=== PATIENT | female | born 1950 ===

== ENCOUNTER 2016-05-06 09:18 | Emergency (ER) | payer MEDICARE ==
[2016-05-06 10:00] VITALS: BP 144/87; PULSE 59; RESP 19; TEMP 97.9; O2SAT 100
[2016-05-06] MEDS ORDERED: TDAP Vaccine 0.5 mL Syr IM ONE (10:33)
--- NOTE | 2016-05-06 11:29 | ED PDOC ---
HPI: Head Injury Time Seen by Provider: 05/06/16 10:19 Chief Complaint (Nursing): Abnormal Skin Integrity Chief Complaint (Provider): Abnormal Skin Integrity History Per: Patient History/Exam Limitations: no limitations Injury Occurred (Timing): Just Before Arrival Patient States: Fell Striking Head Severity: Moderate Loss Of Consciousness: No Additional Complaint(s): Patient is a 66 year old female brought to ED by EMS for head injury sustained this morning. Patient reports she had groceries in her hands while walking up the steps and fell forward striking her right forehead and right knee. Patient does take the blood thinner Persantine daily due to a TIA history. Denies dizziness, weakness, AMS, LOC, chest pain or nausea. Past Medical History Reviewed: Historical Data, Nursing Documentation, Vital Signs Vital Signs: Last Vital Signs Temp 97.9 F 05/06/16 09:59 Pulse 59 L 05/06/16 09:59 Resp 19 05/06/16 09:59 BP 144/87 05/06/16 09:59 Pulse Ox 100 05/06/16 09:59 - Medical History PMH: HTN, TIA - Surgical History Surgical History: Appendectomy - Family History Family History: States: No Known Family Hx - Living Arrangements Living Arrangements: With Family - Allergies Allergies/Adverse Reactions: Allergies Allergy/AdvReac Type Severity Reaction Status Date / Time Penicillins Allergy RASH Verified 05/06/16 09:43 Review of Systems ROS Statement: Except As Marked, All Systems Reviewed And Found Negative Constitutional: Negative for: Weakness Eyes: Negative for: Vision Change Cardiovascular: Negative for: Chest Pain, Palpitations Respiratory: Negative for: Shortness of Breath Gastrointestinal: Negative for: Nausea, Vomiting Musculoskeletal: Positive for: Leg Pain Skin: Positive for: Other (right forehead laceration ) Neurological: Negative for: Weakness, Numbness, Confusion, Altered Mental Status , Dizziness Physical Exam - Reviewed Nursing Documentation Reviewed: Yes Vital Signs Reviewed: Yes - Physical Exam Appears: Positive for: No Acute Distress Head Exam: Negative for: ATRAUMATIC (3cm slightly jagged laceration with abrasion at medical edge. 2cm x 2cm abrasion to left nasal bridge ) Skin: Positive for: Normal Color, Warm Eye Exam: Positive for: Normal appearance, EOMI, PERRL Neck: Positive for: Normal, Painless ROM, Supple Cardiovascular/Chest: Positive for: Regular Rate, Rhythm. Negative for: Murmur Respiratory: Positive for: Normal Breath Sounds. Negative for: Respiratory Distress Gastrointestinal/Abdominal: Positive for: Normal Exam. Negative for: Tenderness Back: Positive for: Normal Inspection Extremity: Positive for: Normal ROM. Negative for: Pedal Edema Neurologic/Psych: Positive for: Alert, child specialist II-XII (grossly intact ), Oriented, Cerebellar Tests (intact ), Gait (normal ), Other (strength 5/5 upper and lower extremities ). Negative for: Motor/Sensory Deficits, Aphasia, Facial Droop - ECG O2 Sat by Pulse Oximetry: 100 (RA) Pulse Ox Interpretation: Normal Medical Decision Making Medical Decision Making: Time: 1033 Initial impression: Head injury Initial plan: -- CT-head/ Orbits -- Knee Xray -- TDAP and Tylenol Scribe Attestation: Documented by Ayanna Del Rio acting as a scribe for Julius Traylor PA-C. MD Scribe Attestation: All medical record entries made by the Scribe were at my direction and personally dictated by me. I have reviewed the chart and agree that the record accurately reflects my personal performance of the history, physical exam, medical decision making, and the department course for this patient. I have also personally directed, reviewed, and agree with the discharge instructions and disposition. sterile dressing placed on nose abrasion and laceration after repair. Orbits: IMPRESSION: No evidence of acute orbital or maxillofacial fracture. Small right frontal scalp hematoma. Chronic ethmoid and maxillary sinusitis. Nasal septum deviated to the right. Hea: IMPRESSION: No intracranial mass, hemorrhage or evidence of acute infarct. Chronic microvascular white matter ischemic change with O more focal remote ischemic change adjacent to frontal horn left lateral ventricle. Chronic ethmoid sinusitis. CTs as above. neuro exam continues to show no focal weakness or deficits, headache has resolved. no change in vision. she feels well. all questions answered, stable for discharge. return and follow up information discussed. Disposition - Clinical Impression Clinical Impression: Head injury, Nose injury, Forehead laceration, Facial abrasion - Patient ED Disposition Is Patient to be Admitted: No Counseled Patient/Family Regarding: Studies Performed, Diagnosis, Need For Followup - Disposition Referrals: Medhat Tan MD [Primary Care Provider] - Disposition: Routine/Home Disposition Time: 13:34 Condition: IMPROVED Additional Instructions: keep the sutures clean and dry return for bleeding, opening of the wound, severe headache or any new concerns follow up without fail with your doctor in 1-2 days for re-evaluation Instructions: Head Injury (ED), Abrasion (ED), Facial Laceration (ED), Care For Your Absorbable Stitches (ED) Laceration - Laceration Repair Right forehead Wound Length (In cm): 3 Description Of Wound: Irregular Wound Cleansed With: Sterile Saline Anesthesia: Lidocaine 1% (3ml) Wound Examination: Irrigated With Saline, No FB With Wound Exploration Wound Closure: Suture Suture Technique And Material Used: Running, Chromic (6-0) Wound Complexity: Simple
[2016-05-06] MEDS ORDERED: Lidocaine 1% Inj (20ml) ONE (12:26)
[2016-05-06] MEDS ORDERED: Lidocaine 1% Inj (20ml) IJ ONE (12:34)
--- NOTE | 2016-05-06 13:12 | CT ---
PROCEDURE: CT ORBITS WITHOUT CONTRAST. HISTORY: Pain, fall COMPARISON: None available. TECHNIQUE: Axial CT images of the orbits were obtained. Coronal and sagittal reformats were generated. Radiation dose: Total exam DLP = 694.22 mGy-cm. FINDINGS: RIGHT ORBIT: RIGHT BONY ORBIT: No evidence of orbital fracture. RIGHT INTRAORBITAL STRUCTURES: Globe: Normal. Extraocular muscles: Normal. Post septal space: Normal. Optic Nerve: Normal. Lacrimal Apparatus: Normal. RIGHT PRESEPTAL SOFT TISSUES: Normal. LEFT ORBIT: LEFT BONY ORBIT: No evidence of orbital fracture. LEFT INTRAORBITAL STRUCTURES: Globe: Normal. Extraocular muscles: Normal. Post septal space: Normal Optic Nerve: Normal. . Lacrimal Apparatus: Normal. LEFT PRESEPTAL SOFT TISSUES: Normal. OTHER: There is a small right frontal scalp hematoma. There is moderate mucosal thickening in the anterior ethmoid air cells and mild mucoperiosteal thickening in the maxillary sinuses. The nasal septum is deviated to the right and there is a large left middle turbinate geo bullosa. IMPRESSION: No evidence of acute orbital or maxillofacial fracture. Small right frontal scalp hematoma. Chronic ethmoid and maxillary sinusitis. Nasal septum deviated to the right.
--- NOTE | 2016-05-06 13:24 | CT ---
PROCEDURE: CT HEAD WITHOUT CONTRAST. HISTORY: pain, fall COMPARISON: None available. TECHNIQUE: Axial computed tomography images were obtained through the head/brain without intravenous contrast. Radiation dose: Total exam DLP = 782.55 mGy-cm. FINDINGS: HEMORRHAGE: No intracranial hemorrhage. BRAIN: No mass effect or edema. No atrophy. Mild periventricular white matter lucency consistent with a microvascular white matter ischemic change. Focal white matter ischemic change adjacent to frontal horn left lateral ventricle. No evidence of acute infarct. VENTRICLES: Unremarkable. No hydrocephalus. CALVARIUM: Unremarkable. PARANASAL SINUSES: Chronic ethmoid sinusitis. MASTOID AIR CELLS: Unremarkable as visualized. No inflammatory changes. OTHER FINDINGS: None. IMPRESSION: No intracranial mass, hemorrhage or evidence of acute infarct. Chronic microvascular white matter ischemic change with O more focal remote ischemic change adjacent to frontal horn left lateral ventricle. Chronic ethmoid sinusitis.
--- NOTE | 2016-05-06 13:30 | RAD ---
PROCEDURE: Right Knee Radiographs. HISTORY: Pain, fall COMPARISON: None. FINDINGS: BONES: There is mild periarticular bone demineralization. There is no acute displaced fracture or bone destruction. Bone alignment is normal. JOINTS: There is mild tricompartmental degenerative osteoarthrosis with reduced joint spaces and marginal osteophytes, worse in the medial compartment. JOINT EFFUSION: There is a small suprapatellar joint effusion. OTHER FINDINGS: None. IMPRESSION: No acute fracture or dislocation. Mild tricompartmental degenerative osteoarthrosis, worse in the medial compartment.
== END 2016-05-06 13:33 | disposition home or self-care (01) ==
LOC: H.ER 09:18
DX: S01.81XA Laceration without foreign body of other part of head, initial encounter (principal); S09.92XA Unspecified injury of nose, initial encounter; S00.81XA Abrasion of other part of head, initial encounter; W19.XXXA Unspecified fall, initial encounter; Y92.89 Other specified places as the place of occurrence of the external cause; I10 Essential (primary) hypertension; Z86.73 Personal history of transient ischemic attack (TIA), and cerebral infarction without residual deficits

== ENCOUNTER 2016-07-30 10:31 | Inpatient (IN) | payer MEDICARE ==
[2016-07-30 10:39] VITALS: BMI 26.6
--- NOTE | 2016-07-30 10:46 | ED PDOC ---
HPI:STROKE - Time Time: 10:31 (arrived ) - Historian Historian: Family (son), EMS - Chief Complaint Chief Complaint: Weakness (left sided ), Slurred speech, Facial droop (right sided) - Onset Onset: This morning (noticed this morning) - Notes: Notes:: Eloisa Ac is a 66 year old female, with a previous medical history of TIA, diabetes and hypertension, who presents to the ED via EMS after she was found by her grandson this morning on the bed with left sided weakness associated with right facial droop and slurred speech. According to the patient's son, the patient was noted to be twitching but twitching resolved spontaneously. Son reports patient was last seen well 22:00 last night before bed. Son reports patient is on blood thinners. PMD: Medhat Tan MD NIHSS Stroke Scale - Date/Time Evaluation Performed Date Performed: 07/30/16 Time Performed: 10:30 When Was NIHSS Performed: Code Stroke - How Severe is the Stroke Level of Consciousness: 1=Drowsy LOC to Questions: 0=Both comments correct LOC to commands: 0=Obeys both correctly Best Gaze: 0=Normal Visual: 0=No visual loss Facial: 1=Minor asymmetry Motor Arm - Left: 0=No drift Motor Arm - Right: 0=No drift Motor Leg - Left: 0=No drift Motor Leg - Right: 0=No drift Limb Ataxia: 0=Absent Sensory: 0=Normal Best Language: 0=No aphasia Dysarthia: 0=Normal articulation Extinction & Inattention (Neglect): 0=Normal, no object Score: 2 Severity Of Stroke: 1-4 = Minor Stroke rTPA Inclusion/Exclusion - Refusal of Treatment Patient Refused Treatment: No - Inclusion Criteria for Altepase Patient is 18 years or Older: Yes The Clinical Diagnosis of Ischemic Stroke That is Causing a Potentially Disabling Neurological Deficit: Yes Time of Onset is Well Established to be Less Than 270 Minute Before Treatment Would Begin: No Risk/Benefit Discussed With Patient/Family Member Present: No Past Medical History Reviewed: Historical Data, Nursing Documentation, Vital Signs Vital Signs: Last Vital Signs Temp Pulse Resp BP 110/59 L 07/30/16 10:37 Pulse Ox - Medical History PMH: Diabetes, HTN, TIA - Surgical History Surgical History: Appendectomy - Family History Family History: States: Unknown Family Hx - Allergies Allergies/Adverse Reactions: Allergies Allergy/AdvReac Type Severity Reaction Status Date / Time Penicillins Allergy Mild RASH Verified 07/30/16 10:37 Review of Systems ROS Statement: Except As Marked, All Systems Reviewed And Found Negative Neurological: Positive for: Weakness (left sided ), Change in Speech (slurred), Other (right sided facial droop ) Physical Exam - Reviewed Nursing Documentation Reviewed: Yes Vital Signs Reviewed: Yes - Physical Exam Neurologic/Psych: Positive for: Facial Droop - Laboratory Results Result Diagrams: 07/30/16 10:57 07/30/16 10:57 - ECG Interpretation Of ECG: Sinus abdirizak @ 47, no ST-T changes. - Radiology X-Ray: Interpreted by [facility] X-Ray Interpretation: No Acute Disease - Critical Care Total Time (In Min): 30 Medical Decision Making Medical Decision Making: Initial Impression: Stroke Initial Plan: * Blood type and screen * CT head w/o contrast * EKG * labs * Hemoglobin A1C * lipid panel * Troponin I * PTT * PT * CXR * zofran 4mg IV * quality assurance monitor final cont * accu-check * vital signs Q15 * reevaluation Corey (son) [phone] 11:01 CT head FINDINGS: HEMORRHAGE: No intracranial hemorrhage. BRAIN: No mass effect or edema. Mild white matter changes are again noted adjacent to the left lateral ventricle frontal horn likely represent chronic microvascular ischemic disease. VENTRICLES: Unremarkable. No hydrocephalus. CALVARIUM: Unremarkable. PARANASAL SINUSES: Unremarkable as visualized. No significant inflammatory changes. MASTOID AIR CELLS: Unremarkable as visualized. No inflammatory changes. OTHER FINDINGS: None. IMPRESSION: No evidence of acute intracranial hemorrhage territorial infarct mass effect or midline shift. Re- demonstration of mild chronic microvascular white matter ischemic disease. Scribe Attestation: Documented by Oly Andrews, acting as a scribe for Oly Beasley MD. Provider Scribe Attestation: All medical record entries made by the Scribe were at my direction and personally dictated by me. I have reviewed the chart and agree that the record accurately reflects my personal performance of the history, physical exam, medical decision making, and the department course for this patient. I have also personally directed, reviewed, and agree with the discharge instructions and disposition.
--- NOTE | 2016-07-30 11:02 | CT ---
PROCEDURE: CT HEAD WITHOUT CONTRAST. HISTORY: R facial droop COMPARISON: Comparison is made to the previous study dated 05/06/2016 TECHNIQUE: Axial computed tomography images were obtained through the head/brain without intravenous contrast. Radiation dose: Total exam DLP = 793.03 mGy-cm. This CT exam was performed using one or more of the following dose reduction techniques: Automated exposure control, adjustment of the mA and/or kV according to patient size, and/or use of iterative reconstruction technique. FINDINGS: HEMORRHAGE: No intracranial hemorrhage. BRAIN: No mass effect or edema. Mild white matter changes are again noted adjacent to the left lateral ventricle frontal horn likely represent chronic microvascular ischemic disease. VENTRICLES: Unremarkable. No hydrocephalus. CALVARIUM: Unremarkable. PARANASAL SINUSES: Unremarkable as visualized. No significant inflammatory changes. MASTOID AIR CELLS: Unremarkable as visualized. No inflammatory changes. OTHER FINDINGS: None. IMPRESSION: No evidence of acute intracranial hemorrhage territorial infarct mass effect or midline shift. Re- demonstration of mild chronic microvascular white matter ischemic disease.
[2016-07-30 11:06] LABS: BASO # 0.1 K/uL (0.0-0.2); BASO % 0.5 % (0.0-2.0); EOS # 0.1 K/uL (0.0-0.7); EOS % 0.9 % (0.0-4.0); HEMATOCRIT 40.3 % (34.0-47.0); LYMPH # 3.9 K/uL (1.0-4.3); LYMPH % 35.5 % (20.0-40.0); MEAN CELL VOLUME 88.2 fl (81.0-99.0); MEAN CORPUSCULAR HEMOGLOBIN 28.8 pg (27.0-31.0); MEAN CORPUSCULAR HGB CONC 32.6 g/dL (33.0-37.0); MEAN PLATELET VOLUME 8.4 fl (7.2-11.7); MONO # 0.9 K/uL (0.0-0.8); MONO % 8.6 % (0.0-10.0); NEUT # 5.9 K/uL (1.8-7.0); NEUT % 54.5 % (50.0-75.0); NRBC % 0.1 % (0.0-0.0); RED CELL DISTRIBUTION WIDTH 13.7 % (11.5-14.5); WHITE BLOOD COUNT 10.9 K/uL (4.8-10.8)
[2016-07-30 11:20] LABS: ALB/GLOB RATIO 1.4 (1.0-2.1); ALKALINE PHOSPHATASE 78 U/L (38-126); ALT/SGPT 34 U/L (9-52); AST/SGOT 22 U/L (14-36); BILIRUBIN,TOTAL 0.6 mg/dl (0.2-1.3); BLOOD UREA NITROGEN 18 mg/dl (7-17); CALCIUM 9.2 mg/dL (8.4-10.2); CARBON DIOXIDE 23 mmol/L (22-30); CHLORIDE 106 mmol/L (98-107); CHOLESTEROL 193 mg/dL (0-199); GFR AFRICAN-AMERICAN > 60; GLUCOSE,RANDOM 85 mg/dL (65-105); POTASSIUM 4.5 MMOL/L (3.6-5.0); SODIUM 139 mmol/l (132-148); TOTAL PROTEIN 7.3 G/DL (6.3-8.2)
[2016-07-30] MEDS ORDERED: Sodium Chloride 0.9% 1,000 ML IV STA (11:47)
[2016-07-30 11:54] LABS: RBC URINE 1 /hpf (0-3); URINE BILIRUBIN NEGATIVE (NEGATIVE); URINE BLOOD NEGATIVE (NEGATIVE); URINE COLOR YELLOW (YELLOW); URINE GLUCOSE (UA) NEG (Normal); URINE KETONE NEGATIVE (NEGATIVE); URINE LEUKOCYTE ESTERASE NEG Leu/uL (Negative); URINE PROTEIN NEGATIVE (NEGATIVE); URINE UROBILINOGEN 0.2-1.0 mg/dL (0.2-1.0)
--- NOTE | 2016-07-30 12:02 | CARD ---
APPROVED REPORT EKG Measurement Heart [id number] MA [id number] <Conclusion> Sinus bradycardia Otherwise normal ECG
--- NOTE | 2016-07-30 13:35 | RAD ---
HISTORY: CVA. Portable study 10:54. COMPARISON: No prior. FINDINGS: LUNGS: No active pulmonary disease. PLEURA: No significant pleural effusion identified, no pneumothorax apparent. CARDIOVASCULAR: No radiographic findings to suggest acute or significant cardiovascular disease. OSSEOUS STRUCTURES: No significant abnormalities. VISUALIZED UPPER ABDOMEN: Normal. OTHER FINDINGS: None. IMPRESSION: No active disease.
--- NOTE | 2016-07-30 15:03 | CP.PCM.HP ---
<Elder Gonsales - Last Filed: 07/30/16 18:00> History of Present Illness - History of Present Illness History of Present Illness: 66 YO F was brought into the ER after her son noticed her having right sided facial droop, left sided weakness and slurred speech when she woke up in the morning. She was last seen by her son 10pm the night before and did not have these physical manifestations. Pt had one episode of non bloody non bilious vomiting in the CT scan room. - Patient admits to trying to end her life within the last couple of days, because of the overwelming stress of losing her house to foreclosure. She lives with her mother and son. 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 - Two days ago the patient took a bottle of Glimperide because she had seen on tv it would end her life. The following day she took a handful of Xanax (which was her mothers medication) and put a plastic bag over her head to end her life , but states it was too uncomfortable and ended up taking the bag off her head. Currently she does not express suicidal ideation. Denies any injury to her head. She denies any loss of interest in activities she used to enjoy or loss of energy. She does admit to guilt, with losing the house, she feels as it is her fault. She has not seen a psychiatrist in over 20 years, and is not sure if she was was ever treated for depression. - Denies chest pain, SOB, N/V/D. Currently states she does not feel weak anymore. PMH: TIA, DM2, HTN PSH: Appendectomy Allergy: Penicillin Med: Lisinopril: 20mg. Metformin 1000mb BID, Simvastatin 40mg, Dipyramidol 25 mg TID F/H: Father had stomach cancer. Mother has dementia S/H: Lives w/ her mother and her son, she is overwelmed taking care of her mother with dementia. Denies any travel history. Denies any guns at home. ER course: EKG: Sinus Bradycardia Head CT: Scan does not show any hemorrhage IV fluids 1:1 Suicide watch Type and screen Coagulation panal Zofran 4mg IV PMD: Manual Dominick Shimon. Last visit was over 6 months ago. * Pt: States if she is unable to make decisions for her health or something happens to her: She would like her son to be the decision maker. [phone] (Corey) - She would not want to be intubated, but has verbally consented to chest compressions if needed. Present on Admission - Present on Admission Any Indicators Present on Admission: No History of DVT/PE: No Review of Systems - Review of Systems All systems: reviewed and no additional remarkable complaints except Past Patient History - Past Social History Smoking Status: Never Smoked - CARDIAC Hx Hypertension: Yes - NEUROLOGICAL Hx Transient Ischemic Attacks (TIA): Yes - ENDOCRINE/METABOLIC Hx Diabetes Mellitus Type 2: Yes - PSYCHIATRIC Hx Substance Use: No - SURGICAL HISTORY Hx Appendectomy: Yes - ANESTHESIA Hx Anesthesia: Yes Hx Anesthesia Reactions: No Meds Allergies/Adverse Reactions: Allergies Allergy/AdvReac Type Severity Reaction Status Date / Time Penicillins Allergy Mild RASH Verified 07/30/16 10:37 Physical Exam - Constitutional Appears: No Acute Distress - Head Exam Head Exam: NORMAL INSPECTION - ENT Exam ENT Exam: Mucous Membranes Dry - Respiratory Exam Respiratory Exam: Clear to Auscultation Bilateral, NORMAL BREATHING PATTERN - Cardiovascular Exam Cardiovascular Exam: REGULAR RHYTHM, +S1, +S2 - GI/Abdominal Exam GI & Abdominal Exam: Normal Bowel Sounds, Soft. absent: Tenderness - Neurological Exam Neurological exam: Alert, CN II-XII Intact, Oriented x3 Additional comments: Motor and sensation intact Motor: 5/5 b/l upper and lower extremity DTR WNL 2+ b/l - Psychiatric Exam Psychiatric exam: Depressed - Skin Skin Exam: Normal Color, Warm Results - Vital Signs Recent Vital Signs: Last Vital Signs Temp 95.7 F L 07/30/16 11:15 Pulse 47 L 07/30/16 12:03 Resp 16 07/30/16 12:03 BP 133/68 07/30/16 12:03 Pulse Ox 100 07/30/16 12:03 - Labs Result Diagrams: 07/30/16 10:57 07/30/16 10:57 Assessment & Plan - Assessment and Plan (Free Text) Assessment: 66 YO F which was admitted with right sided facial droop, left sided weakness and slurring of speech 1) Suicidal Ideation w/ attempt w/ Xanex overdose - Monitor on Tele - 1:1 supervision - Consulted Dr. Nixon - If medically stable, patient will be transferred to voluntary inpatient psych tomorrow. - F/U w/ CBC,CMP, TSH, T4 2) DM2 -Metformin 1000mg BID - Lipitor 20 mg PO daily - F/U w/ HBA1c 3) HTN - Lisinopril 20 mg PO 4) Hx of TIA - Dipyridamol 23 mg TID - Lipitor 20 mg PO daily 5) Prophylaxis - Protonix - Heparin 5,000 units SQ Q12 abd B/L SCD - Heart healthy diet <Taras Aleman - Last Filed: 07/30/16 19:33> Results - Vital Signs Recent Vital Signs: Last Vital Signs Temp 97.5 F L 07/30/16 16:05 Pulse 47 L 07/30/16 16:05 Resp 18 07/30/16 16:25 BP 110/67 07/30/16 16:05 Pulse Ox 99 07/30/16 16:05 - Labs Result Diagrams: 07/30/16 10:57 07/30/16 10:57 Labs: Laboratory Results - last 24 hr 07/30/16 16:46 POC Glucose (mg/dL) 78 Attending/Attestation - Attestation I have personally seen and examined this patient.: Yes I have fully participated in the care of the patient.: Yes I have reviewed all pertinent clinical information: Yes Notes (Text): 07/30/16 19:31 Patient was seen separately from Family Medicin Resident History, Physical, Assessment and Plan and Orders were thoroughly gone over with the resident Please also note on exam that there was NO facial droop, 5/5 strength bilateral UE and LE with flexion and extension. For In-Patient psychiatry 07/31/16 (patient is willing to do so) as long as there are NO issues overnight (NO QT prolongation on Telemetry). Taras Aleman D.O.
[2016-07-30] MEDS ORDERED: Pneumococcal 23-Valent Vaccine IM ONE (16:50)
[2016-07-30] MEDS: Insulin Regular 100 units/ml SC SCH ×2 (17:00→22:42)
[2016-07-30] MEDS: Pantoprazole 40 mg EC Tab PO SCH (17:00)
[2016-07-30] MEDS: Sodium Chloride 0.9% 1,000 ML IV SCH (18:28)
[2016-07-30] MEDS ORDERED: Magnesium Oxide 400 mg Tab UD PO ONE (19:00)
[2016-07-30] MEDS ORDERED: Alum-Mag Hydrox-Simethicone Susp (30 mL) PO STA (19:50)
[2016-07-30 20:14] VITALS: O2SAT 97
[2016-07-31 04:36] VITALS: RESP 18
[2016-07-31 04:51] LABS: BASO % 0.2 % (0.0-2.0); EOS # 0.1 K/uL (0.0-0.7); EOS % 1.3 % (0.0-4.0); HEMATOCRIT 37.3 % (34.0-47.0); LYMPH # 4.8 K/uL (1.0-4.3); LYMPH % 42.9 % (20.0-40.0); MEAN CELL VOLUME 87.5 fl (81.0-99.0); MEAN CORPUSCULAR HEMOGLOBIN 28.5 pg (27.0-31.0); MEAN CORPUSCULAR HGB CONC 32.6 g/dL (33.0-37.0); MONO % 8.7 % (0.0-10.0); NEUT # 5.3 K/uL (1.8-7.0); NEUT % 46.9 % (50.0-75.0); RED CELL DISTRIBUTION WIDTH 13.5 % (11.5-14.5); WHITE BLOOD COUNT 11.2 K/uL (4.8-10.8)
[2016-07-31 04:58] LABS: ALB/GLOB RATIO 1.3 (1.0-2.1); ALKALINE PHOSPHATASE 69 U/L (38-126); ALT/SGPT 30 U/L (9-52); AST/SGOT 21 U/L (14-36); BILIRUBIN,TOTAL 0.2 mg/dl (0.2-1.3); BLOOD UREA NITROGEN 18 mg/dl (7-17); CALCIUM 8.5 mg/dL (8.4-10.2); CARBON DIOXIDE 24 mmol/L (22-30); CHLORIDE 107 mmol/L (98-107); GFR AFRICAN-AMERICAN > 60; GLUCOSE,RANDOM 92 mg/dL (65-105); POTASSIUM 4.1 MMOL/L (3.6-5.0); SODIUM 142 mmol/l (132-148); TOTAL PROTEIN 6.6 G/DL (6.3-8.2)
[2016-07-31 05:01] LABS: T4 7.21 ug/dl (5.5-11.0)
[2016-07-31 05:14] LABS: THYROID STIMULATING HORMONE 1.02 mIU/ML (0.46-4.68)
[2016-07-31] MEDS: Sodium Chloride 0.9% 1,000 ML IV SCH (05:31)
[2016-07-31] MEDS: Insulin Regular 100 units/ml SC SCH ×2 (06:50→15:03)
[2016-07-31] MEDS: Pantoprazole 40 mg EC Tab PO SCH (10:34)
--- NOTE | 2016-07-31 10:42 | CP.PCM.DIS ---
Provider - Provider Date of Admission: 07/30/16 12:37 Attending physician: Taras Aleman MD Time Spent in preparation of Discharge (in minutes): 30 Diagnosis - Discharge Diagnosis (1) Suicide attempt by drug ingestion Status: Acute Hospital Course - Lab Results Lab Results: Most Recent Lab Values WBC 11.2 K/uL (4.8-10.8) H 07/31/16 04:05 RBC 4.26 Mil/uL (3.80-5.20) 07/31/16 04:05 Hgb 12.2 g/dL (12.0-16.0) 07/31/16 04:05 Hct 37.3 % (34.0-47.0) 07/31/16 04:05 MCV 87.5 fl (81.0-99.0) 07/31/16 04:05 MCH 28.5 pg (27.0-31.0) 07/31/16 04:05 MCHC 32.6 g/dL (33.0-37.0) L 07/31/16 04:05 RDW 13.5 % (11.5-14.5) 07/31/16 04:05 Plt Count 290 K/uL (130-400) 07/31/16 04:05 MPV 9.0 fl (7.2-11.7) 07/31/16 04:05 Neut % (Auto) 46.9 % (50.0-75.0) L 07/31/16 04:05 Lymph % (Auto) 42.9 % (20.0-40.0) H 07/31/16 04:05 [place] % (Auto) 8.7 % (0.0-10.0) 07/31/16 04:05 Eos % (Auto) 1.3 % (0.0-4.0) 07/31/16 04:05 Baso % (Auto) 0.2 % (0.0-2.0) 07/31/16 04:05 Neut # 5.3 K/uL (1.8-7.0) 07/31/16 04:05 Lymph # 4.8 K/uL (1.0-4.3) H 07/31/16 04:05 [place] # 1.0 K/uL (0.0-0.8) H 07/31/16 04:05 Eos # 0.1 K/uL (0.0-0.7) 07/31/16 04:05 Baso # 0.0 K/uL (0.0-0.2) 07/31/16 04:05 PT 11.0 Seconds (9.8-13.1) 07/30/16 10:57 INR 1.0 (0.9-1.2) 07/30/16 10:57 APTT 33.0 Seconds (25.6-37.1) 07/30/16 10:57 Sodium 142 mmol/l (132-148) 07/31/16 04:05 Potassium 4.1 MMOL/L (3.6-5.0) 07/31/16 04:05 Chloride 107 mmol/L (98-107) 07/31/16 04:05 Carbon Dioxide 24 mmol/L (22-30) 07/31/16 04:05 Anion Gap 15 (10-20) 07/31/16 04:05 BUN 18 mg/dl (7-17) H 07/31/16 04:05 Creatinine 0.7 mg/dL (0.7-1.2) 07/31/16 04:05 Est GFR ( Amer) > 60 07/31/16 04:05 Est GFR (Non-Af Amer) > 60 07/31/16 04:05 POC Glucose (mg/dL) 108 mg/dL (65-110) 07/31/16 06:48 Random Glucose 92 mg/dL (65-105) 07/31/16 04:05 Hemoglobin A1c 5.8 % (4.2-6.5) 07/30/16 10:57 Lactic Acid 1.1 MMOL/L (0.7-2.1) 07/30/16 11:40 Calcium 8.5 mg/dL (8.4-10.2) 07/31/16 04:05 Total Bilirubin 0.2 mg/dl (0.2-1.3) 07/31/16 04:05 AST 21 U/L (14-36) 07/31/16 04:05 ALT 30 U/L (9-52) 07/31/16 04:05 Alkaline Phosphatase 69 U/L (38-126) 07/31/16 04:05 Troponin I 0.0190 ng/mL (0.00-0.120) 07/30/16 10:57 Total Protein 6.6 G/DL (6.3-8.2) 07/31/16 04:05 Albumin 3.7 g/dL (3.5-5.0) 07/31/16 04:05 Globulin 2.8 gm/dL (2.2-3.9) 07/31/16 04:05 Albumin/Globulin Ratio 1.3 (1.0-2.1) 07/31/16 04:05 Triglycerides 153 mg/DL (0-149) H 07/30/16 10:57 Cholesterol 193 mg/dL (0-199) 07/30/16 10:57 LDL Cholesterol Direct 104 mg/dL (0-129) 07/30/16 10:57 HDL Cholesterol 51 MG/DL (30-70) 07/30/16 10:57 Thyroxine (T4) 7.21 ug/dl (5.5-11.0) 07/31/16 04:05 TSH 3rd Generation 1.02 mIU/ML (0.46-4.68) 07/31/16 04:05 Urine Color Yellow (YELLOW) 07/30/16 11:35 Urine Clarity Clear (Clear) 07/30/16 11:35 Urine pH 7.0 (5.0-8.0) 07/30/16 11:35 Ur Specific [place] 1.009 (1.003-1.030) 07/30/16 11:35 Urine Protein Negative mg/dL (NEGATIVE) 07/30/16 11:35 Urine Glucose (UA) Neg mg/dL (Normal) 07/30/16 11:35 Urine Ketones Negative mg/dL (NEGATIVE) 07/30/16 11:35 Urine Blood Negative (NEGATIVE) 07/30/16 11:35 Urine Nitrate Negative (NEGATIVE) 07/30/16 11:35 Urine Bilirubin Negative (NEGATIVE) 07/30/16 11:35 Urine Urobilinogen 0.2-1.0 mg/dL (0.2-1.0) 07/30/16 11:35 Ur Leukocyte Esterase Neg Dionte/uL (Negative) 07/30/16 11:35 Urine RBC (Auto) 1 /hpf (0-3) 07/30/16 11:35 Ur Squamous Epith Cells < 1 /hpf (0-5) 07/30/16 11:35 Salicylates < 1.0 mg/dl 07/30/16 11:25 Urine Opiates Screen Negative (NEGATIVE) 07/30/16 11:35 Urine Methadone Screen Negative (NEGATIVE) 07/30/16 11:35 Acetaminophen < 10.0 ug/ml (10.0-30.0) L 07/30/16 11:25 Ur Barbiturates Screen Negative (NEGATIVE) 07/30/16 11:35 Ur Phencyclidine Scrn Negative (NEGATIVE) 07/30/16 11:35 Ur Amphetamines Screen Negative (NEGATIVE) 07/30/16 11:35 U Benzodiazepines Scrn Positive (NEGATIVE) H 07/30/16 11:35 U Oth Cocaine Metabols Negative (NEGATIVE) 07/30/16 11:35 U Cannabinoids Screen Negative (NEGATIVE) 07/30/16 11:35 Alcohol, Quantitative < 10 mg/dl (0-10) 07/30/16 11:17 Blood Type O POSITIVE 07/30/16 10:57 Blood Type Confirm O POSITIVE 07/31/16 07:48 Antibody Screen Negative 07/30/16 10:57 BBK History Checked No verified bt 07/30/16 10:57 - Hospital Course Hospital Course: 66 YO F which was admitted with right sided facial droop, left sided weakness and slurring of speech. NO facial droop, no signs of neuro deficts on physical exam. Patient admitted to taking benzos in suicide attempt. CT head negative. Patient medically stable to be discharged to psych. 1) Suicidal Ideation w/ attempt w/ Xanex overdose - Monitor on Tele - 1:1 supervision - Consulted Dr. Nixon - Medically stable for dc to psych - F/U w/ CBC,CMP, TSH, T4 2) DM2 -Metformin 1000mg BID - Lipitor 20 mg PO daily - F/U w/ HBA1c 3) HTN - Lisinopril 20 mg PO 4) Hx of TIA - Dipyridamol 23 mg TID - Lipitor 20 mg PO daily 5) Prophylaxis - Protonix - Heparin 5,000 units SQ Q12 abd B/L SCD - Heart healthy diet Discharge Exam - Head Exam Head Exam: NORMAL INSPECTION - Eye Exam Eye Exam: EOMI, Normal appearance, PERRL Pupil Exam: NORMAL ACCOMODATION - ENT Exam ENT Exam: Mucous Membranes Moist, Normal Oropharynx - Neck Exam Neck exam: Full Rom, Normal Inspection - Respiratory Exam Respiratory Exam: Clear to PA & Lateral, NORMAL BREATHING PATTERN - Cardiovascular Exam Cardiovascular Exam: RRR, +S1, +S2 - GI/Abdominal Exam GI & Abdominal Exam: Normal Bowel Sounds, Soft. absent: Organomegaly, Tenderness - Extremities Exam Extremities exam: normal capillary refill, pedal pulses present - Back Exam Back exam: absent: CVA tenderness (L), CVA tenderness (R) - Neurological Exam Neurological exam: Alert, Normal Gait, Oriented x3 Additional comments: no neuro deficits - Psychiatric Exam Psychiatric exam: Normal Affect, Normal Mood - Skin Skin Exam: Dry, Normal Color, Warm Discharge Plan - Follow Up Plan Condition: STABLE Disposition: DISCHARGE TO PSYCH HOSPITAL Additional Instructions: FOR DISCHARGE TO PSYCHINPATIENT VOLUNTARY
[2016-07-31 12:26] VITALS: BP 112/70; PULSE 56; TEMP 98.4
== END 2016-07-31 15:26 | DRG 918 ==
LOC: H.ER 10:31 → H.ERHOLD 12:37 → H.TEL 15:10
PROVIDERS: ADMIT Family Medicine; ATTEND Family Medicine
DX: T42.4X2A Poisoning by benzodiazepines, intentional self-harm, initial encounter (principal); I10 Essential (primary) hypertension; E11.9 Type 2 diabetes mellitus without complications; Y92.9 Unspecified place or not applicable; Z79.84 Long term (current) use of oral hypoglycemic drugs; Z86.73 Personal history of transient ischemic attack (TIA), and cerebral infarction without residual deficits

== ENCOUNTER 2016-07-31 16:37 | Inpatient (IN) | payer MEDICARE ==
[2016-07-31 16:52] VITALS: BMI 31.9
--- NOTE | 2016-08-01 14:21 | PCM.PSYCH ---
Initial Psychiatric Evaluation - Initial Psychiatric Evaluation Type of Admission: Voluntary Chief Complaint (in patient's own words): pt verbally to sign in for inpt treatment of depression and recent attempt of suicide Current Medications: Active Medications Generic Name Dose Route Start Last Admin Trade Name Khushboo PRN Reason Stop Dose Admin Atorvastatin Calcium 20 mg 08/01/16 09:00 08/01/16 09:05 Lipitor PO 20 mg DAILY OLAYINKA Administration Dipyridamole 25 mg 08/01/16 09:00 08/01/16 09:04 Persantine PO 25 mg TID OLAYINKA Administration Escitalopram Oxalate 5 mg 07/31/16 22:00 07/31/16 21:18 Lexapro PO 5 mg HS OLAYINKA Administration Folic Acid 1 mg 08/01/16 09:00 Folic Acid PO DAILY LOAYINKA Lisinopril 20 mg 08/01/16 09:00 08/01/16 09:05 Zestril PO 20 mg DAILY OLAYINKA Administration Metformin HCl 1,000 mg 08/01/16 09:00 08/01/16 09:04 Glucophage PO 1,000 mg BID OLAYINKA Administration Past Psychiatric History - Past Psychiatric History Pertinent Medical Hx (Current Medical&Sleep Prob, Allergies): Allergies Allergy/AdvReac Type Severity Reaction Status Date / Time Penicillins Allergy Mild RASH Verified 07/30/16 10:37 Dipyridamole [Persantine] 25 mg PO TID 07/30/16 Folic Acid 1 mg PO DAILY 07/30/16 Glimepiride [Amaryl] 4 mg PO DAILY 07/30/16 Lisinopril [Zestril] 20 mg PO DAILY 07/30/16 Metformin HCl [Glucophage] 1,000 mg PO BID 07/30/16 Simvastatin [Zocor] 40 mg PO HS 07/30/16 Atorvastatin [Lipitor] 20 mg PO DAILY tab 07/31/16 Dipyridamole [Persantine] 25 mg PO TID tab 07/31/16 Insulin Human Regular [HumuLIN R] See Protocol SC ACHS ml 07/31/16 Lisinopril [Zestril] 20 mg PO DAILY tab 07/31/16 MetFORMIN [glucoPHAGE] 1,000 mg PO BIDWM tab 07/31/16
[2016-08-02] MEDS ORDERED: Magnesium Hydroxide Susp 30 ml UD PO PRN (08:56)
--- NOTE | 2016-08-02 14:27 | PCM.PYCHPN ---
Psychiatric Progress Note - Psychiatric Progress Note Patient seen today, length of contact: Patient evaluated, case discussed with team, chart reviewed, 35 min Patient Chief Complaint: "I did a stupid thing" Problems Identified/Issues Discussed: Patient reports that she continues to feel depressed, but denied current ideation to harm herself. She expressed remorse for her suicide attempt, stating that she would have hurt a lot of people if she completed suicide. She discussed her many problems including having a son with muscular dystrophy and pending foreclosure of her home. Medication Change: No Medical Record Reviewed: Yes Mental Status Examination - Cognitive Function Orientation: Person, Place, Situation, Time Memory: Intact Attention: WNL Concentration: WNL Association: WNL Fund of Knowledge: [facility] Decription of patient's judgement and insights: Fair I/J - Mood Mood: Depressed - Affect Affect: Constricted - Speech Speech: Appropriate - Formal Thought Process Formal Thought Process: No Impairment Psychotic Thoughts and Behaviors: NO AH/VH/paranoia/delusions - Suicidal Ideation Suicidal Ideation: No - Homicidal Ideation Homicidal Ideation: No Goal/Treatment Plan - Goal/Treatment Plan Need for Continued Stay: Remain at risks for inpatient hospitalization, Severe depression anxiety Progress Toward Problem(s) and Goals/Treatment Plan: 66 yo female presents s/p suicide attempt by OD, currently being treated for MDD. -Individual and group therapy -Continue Lexapro 5 mg PO Daily Estimated Date of D/C: 08/05/16
[2016-08-03] MEDS: Alum-Mag Hydrox-Simethicone Susp (30 mL) PO PRN (10:19)
--- NOTE | 2016-08-03 11:43 | PCM.PYCHPN ---
Psychiatric Progress Note - Psychiatric Progress Note Patient seen today, length of contact: Patient evaluated, case discussed with team, chart reviewed, 35 min Patient Chief Complaint: "I'm feeling more like myself" Problems Identified/Issues Discussed: Patient reports that her mood is starting to improve, but she was tearful at times during our conversation. She discussed her continued stress due to taking care of her mother, who has dementia. We discussed the importance of self-care and continued treatment and therapy following discharge. She expressed remorse for her suicide attempt and reports that she had actually tried to kill her self on two separate occasions prior to admission. She expresses a desire to live at this time. She is not agreeable to increasing the dosage of Lexapro at this time due to concerns about developing side effects , none currently reported. Medication Change: No Medical Record Reviewed: Yes Mental Status Examination - Cognitive Function Orientation: Person, Place, Situation, Time Memory: Intact Attention: WNL Concentration: WNL Association: WNL Fund of Knowledge: WNL Decription of patient's judgement and insights: Fair I/J - Mood Mood: Depressed - Affect Affect: Constricted - Speech Speech: Appropriate - Formal Thought Process Formal Thought Process: No Impairment Psychotic Thoughts and Behaviors: NO AH/VH/paranoia/delusions - Suicidal Ideation Suicidal Ideation: No - Homicidal Ideation Homicidal Ideation: No Goal/Treatment Plan - Goal/Treatment Plan Need for Continued Stay: Remain at risks for inpatient hospitalization, Severe depression anxiety Progress Toward Problem(s) and Goals/Treatment Plan: 66 yo female presents s/p suicide attempt by OD, currently being treated for MDD. -Individual and group therapy -Continue Lexapro 5 mg PO Daily Estimated Date of D/C: 08/06/16
[2016-08-04] MEDS: Alum-Mag Hydrox-Simethicone Susp (30 mL) PO PRN (08:29)
--- NOTE | 2016-08-04 10:43 | CP.PCM.CON ---
<Elder Gonsales - Last Filed: 08/04/16 11:13> History of Present Illness - History of Present Illness History of Present Illness: 66 YO F who is a transfer from telemetry after monitoring and medically cleared was initially brought into the ER after attempting to commit suicide from taking a handful of xanex and putting a plastic bag over her head. Her son noticed her having right sided facial droop, left sided weakness and slurred speech when she woke up the next morning is what she had told me in the ER. Today the patient does not recall meeting me in the ER, but she denies any current throughts of suicide and appears to be doing much better. - Patient admits to trying to end her life within the last couple of days before admission in to the ER, because of the overwelming stress of losing her house to foreclosure. She lives with her mother and son. 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 - She does admit to guilt, with losing the house, she feels as it is her fault. - Denies chest pain, SOB, N/V/D. - She is requesting generic omeprazole, she states nexium does not provide relief to her GERD symptoms. PMH: TIA, DM2, HTN PSH: Appendectomy Allergy: Penicillin Med: Lisinopril: 20mg. Metformin 1000mb BID, Simvastatin 40mg, Dipyramidol 25 mg TID F/H: Father had stomach cancer. Mother has dementia S/H: Lives w/ her mother and her son, she is overwelmed taking care of her mother with dementia. Denies any travel history. Denies any guns at home. Past Patient History - Past Medical History & Family History Past Medical History?: Yes - Past Social History Smoking Status: Never Smoked - CARDIAC Hx Hypertension: Yes - NEUROLOGICAL Hx Transient Ischemic Attacks (TIA): Yes - HEENT Hx HEENT Problems: No - RENAL Hx Chronic Kidney Disease: No - ENDOCRINE/METABOLIC Hx Diabetes Mellitus Type 2: Yes - HEMATOLOGICAL/ONCOLOGICAL Hx AIDS: No Hx Human Immunodeficiency Virus (HIV): No - INTEGUMENTARY Hx Dermatological Problems: No - MUSCULOSKELETAL/RHEUMATOLOGICAL Hx Falls: No - GASTROINTESTINAL Hx Gastrointestinal Disorders: No - GENITOURINARY/GYNECOLOGICAL Hx Genitourinary Disorders: No - PSYCHIATRIC Hx Substance Use: No - SURGICAL HISTORY Hx Appendectomy: Yes - ANESTHESIA Hx Anesthesia: Yes Hx Anesthesia Reactions: No Meds Allergies/Adverse Reactions: Allergies Allergy/AdvReac Type Severity Reaction Status Date / Time Penicillins Allergy Mild RASH Verified 07/30/16 10:37 - Medications Medications: Current Medications Acetaminophen (Tylenol 325mg Tab) 650 mg PO Q4 PRN PRN Reason: Pain, moderate (4-7) Last Admin: 08/03/16 05:43 Dose: 650 mg Al Hydrox/Mg Hydrox/Simethicone (Maalox Plus 30 Ml) 30 ml PO Q4 PRN PRN Reason: Dyspepsia Last Admin: 08/04/16 08:29 Dose: 30 ml Atorvastatin Calcium (Lipitor) 20 mg PO DAILY [facility] Last Admin: 08/04/16 08:24 Dose: 20 mg Dipyridamole (Persantine) 25 mg PO TID [facility] Last Admin: 08/04/16 08:23 Dose: 25 mg Escitalopram Oxalate (Lexapro) 5 mg PO HS [facility] Last Admin: 08/03/16 21:06 Dose: 5 mg Folic Acid (Folic Acid) 1 mg PO DAILY [facility] Last Admin: 08/04/16 08:24 Dose: 1 mg Lisinopril (Zestril) 20 mg PO DAILY [facility] Last Admin: 08/04/16 08:24 Dose: 20 mg Magnesium Hydroxide (Milk Of Magnesia) 30 ml PO HS PRN PRN Reason: Constipation Metformin HCl (Glucophage) 1,000 mg PO BID [facility] Last Admin: 08/04/16 08:23 Dose: 1,000 mg Physical Exam - Constitutional Appears: No Acute Distress - Head Exam Head Exam: ATRAUMATIC, NORMAL INSPECTION, NORMOCEPHALIC - Eye Exam Eye Exam: Normal appearance - ENT Exam ENT Exam: Mucous Membranes Moist - Respiratory Exam Respiratory Exam: Clear to Auscultation Bilateral, NORMAL BREATHING PATTERN - Cardiovascular Exam Cardiovascular Exam: REGULAR RHYTHM, +S1, +S2 - GI/Abdominal Exam GI & Abdominal Exam: Normal Bowel Sounds, Soft. absent: Tenderness - Extremities Exam Extremities exam: Positive for: normal inspection. Negative for: calf tenderness - Neurological Exam Neurological exam: Alert, CN II-XII Intact, Normal Gait, Oriented x3 - Psychiatric Exam Psychiatric exam: Normal Affect, Normal Mood - Skin Skin Exam: Normal Color, Warm Results - Vital Signs Recent Vital Signs: Last Vital Signs Temp 97.1 F L 08/04/16 06:00 Pulse 67 08/04/16 08:24 Resp 18 08/04/16 06:00 BP 108/63 08/04/16 08:24 Pulse Ox - Labs Labs: Laboratory Results - last 24 hr 08/03/16 08/03/16 08/03/16 11:27 15:32 20:46 POC Glucose (mg/dL) 108 151 H 107 08/04/16 05:59 POC Glucose (mg/dL) 95 Assessment & Plan - Assessment and Plan (Free Text) Assessment: 1) Suicidal Ideation w/ attempt w/ Xanex overdose - Continue w/ Rx as recommended by Psych - Currently doing much better and denies any current suicidal ideation. 2) DM2 Well controlled -Metformin 1000mg BID - Lipitor 20 mg PO daily - HBA1C:5.8 3) HTN - Lisinopril 20 mg PO 4) Hx of TIA - Dipyridamol 23 mg TID - Lipitor 20 mg PO daily 5) GERD - Protonix 6) Prophylaxis - Protonix -Heparin 5,000 units SQ Q12 <Taras Aleman - Last Filed: 08/04/16 17:19> Meds - Medications Medications: Current Medications Acetaminophen (Tylenol 325mg Tab) 650 mg PO Q4 PRN PRN Reason: Pain, moderate (4-7) Last Admin: 08/03/16 05:43 Dose: 650 mg Al Hydrox/Mg Hydrox/Simethicone (Maalox Plus 30 Ml) 30 ml PO Q4 PRN PRN Reason: Dyspepsia Last Admin: 08/04/16 08:29 Dose: 30 ml Atorvastatin Calcium (Lipitor) 20 mg PO DAILY [facility] Last Admin: 08/04/16 08:24 Dose: 20 mg Dipyridamole (Persantine) 25 mg PO TID [facility] Last Admin: 08/04/16 12:46 Dose: 25 mg Escitalopram Oxalate (Lexapro) 5 mg PO HS [facility] Last Admin: 08/03/16 21:06 Dose: 5 mg Folic Acid (Folic Acid) 1 mg PO DAILY [facility] Last Admin: 08/04/16 08:24 Dose: 1 mg Heparin Sodium (Porcine) (Heparin) 5,000 units SC Q8 [facility] PRN Reason: Protocol Lisinopril (Zestril) 20 mg PO DAILY [facility] Last Admin: 08/04/16 08:24 Dose: 20 mg Magnesium Hydroxide (Milk Of Magnesia) 30 ml PO HS PRN PRN Reason: Constipation Metformin HCl (Glucophage) 1,000 mg PO BID [facility] Last Admin: 08/04/16 08:23 Dose: 1,000 mg Pantoprazole Sodium (Protonix Ec Tab) 20 mg PO DAILY [facility] Last Admin: 08/04/16 12:46 Dose: 20 mg Results - Vital Signs Recent Vital Signs: Last Vital Signs Temp 98.2 F 08/04/16 15:54 Pulse 52 L 08/04/16 15:54 Resp 20 08/04/16 15:54 BP 129/67 08/04/16 15:54 Pulse Ox - Labs Labs: Laboratory Results - last 24 hr 08/03/16 08/04/16 08/04/16 20:46 05:59 12:17 POC Glucose (mg/dL) 107 95 112 H 08/04/16 15:45 POC Glucose (mg/dL) 170 H Attending/Attestation - Attestation I have personally seen and examined this patient.: Yes I have fully participated in the care of the patient.: Yes I have reviewed all pertinent clinical information: Yes Notes (Text): 08/04/16 16:40 The patient was seen separately from the Generation Engineer. History, Physical, Assessment and Plan and Orders were thoroughly gone over with Dr. Hali Gonsales. Please also note that the Assessment and Plan also includes the following: Leukocytosis: likely secondary to stress response as there is no significant shift, no fevers, and vitals are stable. F/U CBC with differential. Taras Aleman D.O.
[2016-08-04] MEDS: Pantoprazole 20 mg EC Tab PO SCH (12:46)
--- NOTE | 2016-08-04 16:49 | PCM.PYCHPN ---
Psychiatric Progress Note - Psychiatric Progress Note Patient seen today, length of contact: Patient evaluated, case discussed with team, chart reviewed, 35 min Patient Chief Complaint: "I'm doing better" Problems Identified/Issues Discussed: Patient reports that her mood is improving. She discussed how her son came to visit her. She discussed the conflicts in her family starting to improve, but she was tearful at times during our conversation. She continues to express remorse for her suicide attempt. We discussed coping strategies and supportive psychotherapy was provided. No adverse effects reported. Medication Change: No Medical Record Reviewed: Yes Mental Status Examination - Cognitive Function Orientation: Person, Place, Situation, Time Memory: Intact Attention: WNL Concentration: WNL Association: WNL Fund of Knowledge: [facility] Decription of patient's judgement and insights: Fair I/J - Mood Mood: Depressed - Affect Affect: Constricted - Speech Speech: Appropriate - Formal Thought Process Formal Thought Process: No Impairment Psychotic Thoughts and Behaviors: NO AH/VH/paranoia/delusions - Suicidal Ideation Suicidal Ideation: No - Homicidal Ideation Homicidal Ideation: No Goal/Treatment Plan - Goal/Treatment Plan Need for Continued Stay: Remain at risks for inpatient hospitalization, Severe depression anxiety Progress Toward Problem(s) and Goals/Treatment Plan: 66 yo female presents s/p suicide attempt by OD, currently being treated for MDD. -Individual and group therapy -Continue Lexapro 5 mg PO Daily Estimated Date of D/C: 08/06/16
[2016-08-05 08:47] LABS: BASO % 0.1 % (0.0-2.0); EOS # 0.1 K/uL (0.0-0.7); EOS % 1.3 % (0.0-4.0); HEMATOCRIT 40.5 % (34.0-47.0); LYMPH # 3.7 K/uL (1.0-4.3); LYMPH % 38.2 % (20.0-40.0); MEAN CELL VOLUME 86.9 fl (81.0-99.0); MEAN CORPUSCULAR HEMOGLOBIN 28.9 pg (27.0-31.0); MEAN CORPUSCULAR HGB CONC 33.2 g/dL (33.0-37.0); MEAN PLATELET VOLUME 8.8 fl (7.2-11.7); MONO # 0.9 K/uL (0.0-0.8); MONO % 8.9 % (0.0-10.0); NEUT % 51.5 % (50.0-75.0); RED CELL DISTRIBUTION WIDTH 13.5 % (11.5-14.5); WHITE BLOOD COUNT 9.6 K/uL (4.8-10.8)
[2016-08-05] MEDS: Pantoprazole 20 mg EC Tab PO SCH (09:06)
--- NOTE | 2016-08-05 14:25 | PCM.PYCHPN ---
Psychiatric Progress Note - Psychiatric Progress Note Patient seen today, length of contact: Patient evaluated, case discussed with team, chart reviewed, 35 min Patient Chief Complaint: "I'm doing better" Problems Identified/Issues Discussed: Patient reports improved mood. No ideation to harm herself. She discussed her anxiety about returning home and dealing with her family. She feels safe to be discharged tomorrow. She denies adverse effects to Lexapro. We discussed coping strategies and supportive psychotherapy was provided. Medication Change: No Medical Record Reviewed: Yes Mental Status Examination - Cognitive Function Orientation: Person, Place, Situation, Time Memory: Intact Attention: WNL Concentration: WNL Association: [facility] Fund of Knowledge: [facility] Decription of patient's judgement and insights: Fair I/J - Mood Mood: Depressed - Affect Affect: Constricted - Speech Speech: Appropriate - Formal Thought Process Formal Thought Process: No Impairment Psychotic Thoughts and Behaviors: NO AH/VH/paranoia/delusions - Suicidal Ideation Suicidal Ideation: No - Homicidal Ideation Homicidal Ideation: No Goal/Treatment Plan - Goal/Treatment Plan Need for Continued Stay: Severe depression anxiety Progress Toward Problem(s) and Goals/Treatment Plan: 66 yo female presents s/p suicide attempt by OD, currently being treated for MDD. -Individual and group therapy -Continue Lexapro 5 mg PO Daily -Discharge to home tomorrow if patient continues to improve clinically Estimated Date of D/C: 08/06/16
[2016-08-06] MEDS: Pantoprazole 20 mg EC Tab PO SCH (09:05)
--- NOTE | 2016-08-06 09:14 | PCM.PYCHDC ---
Mental Status Examination - Mental Status Examination Orientation: Person, Place, Situation, Time Memory: Intact Mood: Neutral Affect: Broad Speech: Appropriate Attention: WNL Concentration: WNL Association: WNL Fund of Knowledge: WNL Formal Thought Process: No Impairment Description of patient's judgement and insight: Fair I/J Psychotic Thoughts and Behaviors: NO AH/VH/paranoia/delusions Suicidal Ideation: No Current Homicidal Ideation?: No Discharge Summary - Discharge Note Reason for Hospitalization: Patient admitted to the hospital for severe depression s/p suicide attempt by overdose in the context of social stressors including possible foreclosure of her mother's home and the stress of caring for her elderly mother. Laboratory Data: Abnormal Lab Results 08/05/16 08/05/16 08/05/16 10:59 15:33 20:01 POC Glucose (mg/dL) 188 H 143 H 139 H Consultations:: List each consultation separately and include: 1. Reason for request. 2. Findings. 3. Follow-up Consultations: Medicine consult Summary of Hospital Course include:: 1. Description of specific treatment plan utilized for patients during their course of treatmen. 2. Summarize the time- course for resolution of acute symptoms and/or regressed behaviors. 3. Describe issues identified and worked on during hospitalization. 4. Describe medication utilized. 5. Describe medical problems identified and treated. 6. Reassessment of suicide risk Summary of Hospital Course: Patient admitted to the hospital. Individual and group therapy were provided. Patient was stabilized on Lexapro 5 mg PO HS. She is now psychiatrically stable for discharge. She is not an acute danger to herself or others at this time. - Final Diagnosis (DSM 5) Condition upon Discharge: GOOD DSM 5: Major Depressive Disorder Disposition: HOME/ ROUTINE Follow-up Treatment Plan: 66 yo female presents s/p suicide attempt by OD, currently being treated for MDD , now improved clinically and psychiatrically stable for discharge. -Individual and group therapy -Continue Lexapro 5 mg PO Daily -Discharge to home with continued outpatient follow-up Discharge >35 min Prescriptions/Medication Reconciliation: Escitalopram [Lexapro] 5 mg PO HS #30 tab - Smoking Cessation Smoking Cessation Medication prescribed: No Reason for not providing: Not indicated - Antipsychotic Medications Pt discharged on 2 or more routine antipsychotic medications: No
[2016-08-06 16:03] VITALS: BP 125/66; PULSE 60; RESP 20; TEMP 97.5
== END 2016-08-06 16:40 | disposition home or self-care (01) | DRG 881 ==
LOC: H.STEP 16:54
PROVIDERS: ADMIT Psychiatry & Neurology Psychiatry; ATTEND Psychiatry & Neurology Psychiatry
PROC: GZ56ZZZ Individual Psychotherapy, Supportive (ICD-10-PCS; principal; 2016-07-31)
DX: F32.9 Major depressive disorder, single episode, unspecified (principal); E11.9 Type 2 diabetes mellitus without complications; I10 Essential (primary) hypertension; D72.829 Elevated white blood cell count, unspecified; F41.9 Anxiety disorder, unspecified; K21.9 Gastro-esophageal reflux disease without esophagitis; Z88.0 Allergy status to penicillin; Z86.73 Personal history of transient ischemic attack (TIA), and cerebral infarction without residual deficits

== ENCOUNTER 2017-02-12 10:20 | Emergency (ER) | payer MEDICARE ==
[2017-02-12 10:20] VITALS: BMI 31.9
[2017-02-12 10:41] VITALS: PULSE 52; RESP 18; TEMP 97; O2SAT 100
--- NOTE | 2017-02-12 11:03 | ED PDOC ---
HPI: General Adult Time Seen by Provider: 02/12/17 11:01 Chief Complaint (Nursing): Trauma Chief Complaint (Provider): head injury History Per: Patient (66 y/o female here for evaluation of head injury today when she tripped outside. Notes additional left knee injury and right hand abrasion. Denies any LOC. Is currently on persantine/asa for prevention of TIA.) Past Medical History Reviewed: Historical Data, Nursing Documentation, Vital Signs Vital Signs: Last Vital Signs Temp 97 F L 02/12/17 10:37 Pulse 52 L 02/12/17 10:37 Resp 18 02/12/17 10:37 BP 154/65 H 02/12/17 10:37 Pulse Ox 100 02/12/17 11:06 - Medical History PMH: Diabetes, HTN, TIA Denies: HIV, Chronic Kidney Disease - Surgical History Surgical History: Appendectomy - Family History Family History: States: Unknown Family Hx - Home Medications Home Medications: Ambulatory Orders Medication Instructions Recorded Folic Acid 1 mg PO DAILY 07/30/16 Glimepiride [Amaryl] 4 mg PO DAILY 07/30/16 Simvastatin [Zocor] 40 mg PO HS 07/30/16 Dipyridamole [Persantine] 25 mg PO TID tab 07/31/16 Insulin Human Regular [HumuLIN R] See Protocol SC ACHS ml 07/31/16 Lisinopril [Zestril] 20 mg PO DAILY tab 07/31/16 MetFORMIN [glucoPHAGE] 1,000 mg PO BIDWM tab 07/31/16 Escitalopram [Lexapro] 5 mg PO HS #30 tab 08/06/16 - Allergies Allergies/Adverse Reactions: Allergies Allergy/AdvReac Type Severity Reaction Status Date / Time Penicillins Allergy Mild RASH Verified 07/30/16 10:37 Review of Systems ROS Statement: Except As Marked, All Systems Reviewed And Found Negative Physical Exam - Reviewed Nursing Documentation Reviewed: Yes Vital Signs Reviewed: Yes - Physical Exam Appears: Positive for: Well, Non-toxic, No Acute Distress Head Exam: Positive for: NORMAL INSPECTION, NORMOCEPHALIC. Negative for: ATRAUMATIC (left supraorbital swelling. EOMs intact.) Skin: Positive for: Normal Color, Warm, DRY Eye Exam: Positive for: EOMI, Normal appearance, PERRL ENT: Positive for: Normal ENT Inspection Neck: Positive for: Normal, Painless ROM Cardiovascular/Chest: Positive for: Regular Rate, Rhythm Respiratory: Positive for: CNT, Normal Breath Sounds Gastrointestinal/Abdominal: Positive for: Normal Exam, Bowel Sounds, Soft Back: Positive for: Normal Inspection Extremity: Positive for: Normal ROM, Tenderness (left knee tenderness with eccymosis/swelling), Swelling, Other (abrasion noted dorsum of right hand distal phalanx 2nd digit.) Neurologic/Psych: Positive for: Alert, Oriented - ECG O2 Sat by Pulse Oximetry: 100 - Progress ED Course And Treament: orbit ct: IMPRESSION: No evidence of orbital fracture. Left frontal scalp hematoma extends into left superior palpebrum. No additional abnormality. ct facial: IMPRESSION: No intracranial hemorrhage. Left supraorbital scalp hematoma. Remote microvascular white matter ischemic change. KNee xry: DJD; no fx Patient will be home with son and mother today. Offered knee immobilizer and crutches but advised to minimize walking on left knee. Disposition - Clinical Impression Clinical Impression: Head injury, Knee contusion - Patient ED Disposition Is Patient to be Admitted: No - Disposition Referrals: Medhat Tan MD [Primary Care Provider] - Disposition: Routine/Home Disposition Time: 12:30 Condition: FAIR Instructions: Head Injury (ED), Knee Pain (ED) Forms: [employer]/20 (Swedish)
[2017-02-12 11:22] VITALS: BP 154/65
--- NOTE | 2017-02-12 12:03 | CT ---
PROCEDURE: CT HEAD WITHOUT CONTRAST. HISTORY: head injury COMPARISON: 07/30/2016 TECHNIQUE: Axial computed tomography images were obtained through the head/brain without intravenous contrast. Radiation dose: Total exam DLP = 779.74 mGy-cm. This CT exam was performed using one or more of the following dose reduction techniques: Automated exposure control, adjustment of the mA and/or kV according to patient size, and/or use of iterative reconstruction technique. FINDINGS: HEMORRHAGE: No intracranial hemorrhage. BRAIN: No mass effect or edema. No atrophy. Mild periventricular white matter lucency with focal remote white matter ischemic change adjacent to frontal horn of the left lateral ventricle extending into the ronquillo radiata. This is unchanged from prior CT examination. VENTRICLES: Unremarkable. No hydrocephalus. CALVARIUM: No fracture. Left supraorbital hematoma extending into superior palpebrum. PARANASAL SINUSES: Unremarkable as visualized. No significant inflammatory changes. MASTOID AIR CELLS: Unremarkable as visualized. No inflammatory changes. OTHER FINDINGS: None. IMPRESSION: No intracranial hemorrhage. Left supraorbital scalp hematoma. Remote microvascular white matter ischemic change.
--- NOTE | 2017-02-12 12:09 | CT ---
PROCEDURE: CT ORBITS WITHOUT CONTRAST. HISTORY: r/o orbital fx COMPARISON: None available. TECHNIQUE: Axial CT images of the orbits were obtained. Coronal and sagittal reformats were generated. Radiation dose: Total exam DLP = 749.4 mGy-cm. This CT exam was performed using one or more of the following dose reduction techniques: Automated exposure control, adjustment of the mA and/or kV according to patient size, and/or use of iterative reconstruction technique. FINDINGS: RIGHT ORBIT: RIGHT BONY ORBIT: Normal. RIGHT INTRAORBITAL STRUCTURES: Globe: Normal. Extraocular muscles: Normal. Post septal space: Normal. Optic Nerve: Normal. Lacrimal Apparatus: Normal. RIGHT PRESEPTAL SOFT TISSUES: Normal. LEFT ORBIT: LEFT BONY ORBIT: Normal. LEFT INTRAORBITAL STRUCTURES: Globe: Normal. Extraocular muscles: Normal. Post septal space: Normal Optic Nerve: Normal. . Lacrimal Apparatus: Normal. LEFT PRESEPTAL SOFT TISSUES: Left frontal scalp hematoma extends into left superior palpebrum. OTHER: None. IMPRESSION: No evidence of orbital fracture. Left frontal scalp hematoma extends into left superior palpebrum. No additional abnormality.
--- NOTE | 2017-02-12 12:35 | RAD ---
PROCEDURE: Left Knee Radiographs. HISTORY: Pain. COMPARISON: None. FINDINGS: BONES: No fracture JOINTS: Mild tricompartmental osteoarthritis. No articular erosion. JOINT EFFUSION: None. OTHER FINDINGS: None. IMPRESSION: Mild tricompartmental osteoarthritis. No acute fracture.
== END 2017-02-12 12:51 | disposition home or self-care (01) ==
LOC: H.ER 10:20
DX: S09.90XA Unspecified injury of head, initial encounter (principal); S80.02XA Contusion of left knee, initial encounter; E11.9 Type 2 diabetes mellitus without complications; I10 Essential (primary) hypertension; S00.03XA Contusion of scalp, initial encounter; S60.511A Abrasion of right hand, initial encounter; Z79.84 Long term (current) use of oral hypoglycemic drugs; Z86.73 Personal history of transient ischemic attack (TIA), and cerebral infarction without residual deficits; Z88.0 Allergy status to penicillin
CPT/HCPCS: 29530; 70450; 70480; 73562; 99285; L1830